=== PATIENT | male | born 1985 | race Caucasian/White ===

== ENCOUNTER 2019-08-26 18:49 | Emergency (ER) | payer OTHER ==
[~2019-08-26] VITALS: Ht 188 cm; Wt 79.4 kg
[~2019-08-26 18:49] MED LIST: 12 HOUR NASAL S30 ML NS; AMOXICILLIN500 M1 PO; APAP500 PO; AUGMENTIN 875875 MG PO; BUSPIRONE HCL10 MG PO; DOXYCYCLINE 10100 MG PO; FLEXERIL PO; HYDROCODON-ACE1 EAC7 PO; HYDROCODONE-AP1 EAC6 PO; HYDROCODONE-APA1 TA1 PO; HYDROXYZINE HCL25 M1 PO; IBUPROFEN 800800 M1 PO; LIDOCAINE VISC100 M1 SWISH&SPIT; MEDROLDOSEPACK PO; MOBIC7.5 MG PO; NAPROSYN500 M1 PO; NOHOMEMEDICATIONS; NORCO 5-325 TA1 EACH PO; OMEPRAZOLE 20 M20 M1 PO; PENICILLIN V P500 MG PO; PERCOCET 5-3251 EACH PO; PREDNISONE 20 M20 M1 PO; ROBAXIN 750 MG750 M1 PO; SKELAXIN 800 M800 M1 PO; TRIAMCINOLONE A80 G2 TOP; XANAX 1 MG TABLE1 MG PO; ZOFRAN ODT4 MG PO; ZPAK PO
[2019-08-26] MEDS ORDERED: IBUPROFEN 600600 M1 PO (19:50)
[2019-08-26] MEDS ORDERED: NORCO 5-325 TA1 EAC1 PO (19:50)
[2019-08-26 20:26] VITALS: BP 113/75
== END 2019-08-26 20:26 | disposition home or self-care (01) ==
LOC: M.ERS 18:49
DX: M25.521 Pain in right elbow (principal); K21.9 Gastro-esophageal reflux disease without esophagitis; F32.9 Major depressive disorder, single episode, unspecified; F17.210 Nicotine dependence, cigarettes, uncomplicated; Z88.6 Allergy status to analgesic agent; Z88.8 Allergy status to other drugs, medicaments and biological substances

== ENCOUNTER 2020-05-04 18:38 | Emergency (ER) | payer OTHER, MEDICAID ==
[~2020-05-04] VITALS: Ht 188 cm; Wt 81.7 kg
[~2020-05-04 18:38] MED LIST changes: +IBUPROFEN 600600 M1 PO; +NORCO 5-325 TA1 EAC1 PO
[2020-05-04 18:43] VITALS: BP 133/74
[2020-05-04] MEDS ORDERED: PERIDEX 0.12%473 M1 SWISH&SPIT (18:55)
[2020-05-04] MEDS ORDERED: IBUPROFEN 800800 M1 PO (18:55)
[2020-05-04] MEDS ORDERED: NORCO 5-325 TA1 EAC2 PO (18:55)
[2020-05-04] MEDS ORDERED: PENICILLIN V P500 MG PO (18:55)
== END 2020-05-04 19:11 | disposition home or self-care (01) ==
LOC: M.ERS 18:38
DX: K08.89 Other specified disorders of teeth and supporting structures (principal); K21.9 Gastro-esophageal reflux disease without esophagitis; F32.9 Major depressive disorder, single episode, unspecified; F17.210 Nicotine dependence, cigarettes, uncomplicated; Z79.899 Other long term (current) drug therapy; Z88.5 Allergy status to narcotic agent; Z88.8 Allergy status to other drugs, medicaments and biological substances

== ENCOUNTER 2020-05-14 17:54 | Emergency (ER) | payer OTHER, MEDICAID ==
[~2020-05-14] VITALS: Ht 188 cm; Wt 81.7 kg
[~2020-05-14 17:54] MED LIST changes: +NORCO 5-325 TA1 EAC2 PO; +PERIDEX 0.12%473 M1 SWISH&SPIT
[2020-05-14 18:03] VITALS: BP 133/75
[2020-05-14] MEDS ORDERED: NORCO 5-325 TA1 EAC2 PO (18:10)
== END 2020-05-14 18:14 | disposition home or self-care (01) ==
LOC: M.ERS 17:54
DX: K02.9 Dental caries, unspecified (principal); K21.9 Gastro-esophageal reflux disease without esophagitis; F17.210 Nicotine dependence, cigarettes, uncomplicated; Z88.5 Allergy status to narcotic agent; Z88.6 Allergy status to analgesic agent